=== PATIENT | female | born 1985 | race Caucasian/White ===

== ENCOUNTER 2020-06-17 14:20 | Emergency (ER) | payer OTHER ==
[2020-06-17] MEDS ORDERED: Ketorolac Tromethamine 30 MG/ML VIAL ONE (14:31)
[2020-06-17] MEDS ORDERED: Ondansetron PF 4 MG/2 ML Vial ONE (14:59)
[2020-06-17] MEDS ORDERED: Morphine 2 MG/ML SYRINGE ONE ×2 (14:59→15:39)
[2020-06-17] MEDS ORDERED: Fentanyl 100 MCG/2 ML VIAL ONE (15:15)
[2020-06-17 15:24] LABS: #Basophils 0.1 thou/uL (0.0-0.2); #Eosinphils 0.2 thou/uL (0.0-0.7); #Lymphocytes 3.8 thou/uL (1.20-3.40); #Monocytes 1.1 thou/uL (0.11-0.59); #Neutrophils 5.5 thou/uL (1.40-6.50); %Basophils 1.2 % (0.0-1.0); %Eosinophils 1.6 % (0.0-10.0); %Lymphocytes 35.3 % (21.0-51.0); %Monocytes 9.9 % (0.0-10.0); Hemoglobin 13.9 g/dL (12.0-16.0); Mean Corpuscular HGB CONC 33.3 g/dL (32.0-36.0); Mean Corpuscular Hemoglobin 29.6 pg (27.0-31.0); Mean Corpuscular Volume 88.9 fL (78.0-98.0); Mean Platelet Volume 11.6 fL (7.4-10.4); Platelet Count 212 thou/uL (130-400); RBC Distribution Width 11.2 % (11.5-14.5); White Blood Cell (WBC) Count 10.7 thou/uL (4.8-10.8)
[2020-06-17 15:31] LABS: Bilirubin Negative (Negative); Blood, Urine Trace (Negative); Clarity Slightly Cloudy (Clear); Glucose, Urine (Dipstick) Negative (Negative); Ketone, Urine Negative (Negative); Leukocyte Negative (Negative); Nitrite Negative (Negative); Protein, Urine (Dipstick) Negative (Neg-Trace); Urobilinogen 0.2 mg/dL (Less than 2)
[2020-06-17 15:32] LABS: Pregnancy Test - Urine (BHCG) Negative (Negative); Pregu Control Background? CLEAR/WHITE (CLR/WHITE); Pregu Control Bar Appear? YES (CONTROL BAR); Specific Gravity 1.029 (1.002-1.036)
[2020-06-17 15:33] LABS: Specific Gravity, Urine 1.029 (1.002-1.036)
[2020-06-17 15:35] LABS: Bacteria/HPF Rare-Few HPF (None Seen); RBC/HPF 0-3 HPF (0-3); Squamous Epithelial 21-50 HPF (0-3); WBC/HPF 0-3 HPF (0-3)
[2020-06-17 15:38] LABS: Anion Gap 15 mmol/L (10-20); BUN (Urea Nitrogen) 14 mg/dL (7.0-18.7); Calc. Creatinine Clearance 0 mL/min (70-130); Calcium 8.7 mg/dL (7.8-10.44); Carbon Dioxide 23 mmol/L (22-29); Chloride 105 mmol/L (98-107); Estimated GFR-MDRD 88; Glucose 118 mg/dL (70-105); Potassium 3.7 mmol/L (3.5-5.1); Sodium 139 mmol/L (136-145)
--- NOTE | 2020-06-17 15:49 | CT ---
CT ABDOMEN AND PELVIS WITHOUT CONTRAST: Date: 06-17-2020 PROVIDED CLINICAL HISTORY: Left sided abdominal pain FINDINGS: No comparisons. The visualized lung bases are clear of significant opacity. The solid abdominal organs demonstrate an unremarkable CT appearance, suboptimally evaluated in the a bsence of IV contrast material. No evidence for urinary tract calculi or hydronephrosis. There is a 7.4 cm septated cystic mass present within the central low pelvis overlying the urinary bl adder, incompletely characterized by CT. There is no bowel dilatation, inflammatory fat stranding, free fluid or free air apparent. There is n o evidence for appendicitis. The osseous structures demonstrate no concerning lytic or blastic lesions. IMPRESSION: 1. No evidence for urinary tract calculi or hydronephrosis. 2. 7.4 cm cystic pelvic mass, for which further evaluation with pelvic ultrasound is recommended . POS: [facility]
== END 2020-06-17 15:51 | disposition short-term general hospital (02) ==
LOC: NAV ERS 14:20
DX: R10.32 Left lower quadrant pain (principal)
CPT/HCPCS: 74176; 80048; 81003; 81015; 81025; 85025; 96374; 96375; 96376; J1885; J2270; J2405; J3010